=== PATIENT | female | born 1990 | race Two or more races ===

== ENCOUNTER 2022-05-31 14:21 | Emergency (ER) | payer OTHER ==
[~2022-05-31] VITALS: Ht 157.5 cm; Wt 71.3 kg
[2022-05-31 15:29] LABS: Basophils # (auto) 0.1 10 ^3/uL (0-0.2); Basophils % (auto) 0.9 % (0.0-2.0); Eosinophils # (auto) 0.1 10 ^3/uL (0-0.8); Eosinophils % (auto) 2.2 % (0.0-7.0); Hematocrit 39.4 % (36.0-46.0); Hemoglobin 12.8 g/dL (12.2-16.2); Lymphocytes % (auto) 30.6 % (10.0-50.0); Mean Corpuscular Hemoglobin 29.2 pg (28.0-32.0); Mean Corpuscular Hgb Conc. 32.6 g/dL (32.0-36.0); Mean Corpuscular Volume 89.8 fL (80.0-100.0); Monocytes # (auto) 0.4 10 ^3/uL (0-1.3); Neutrophils # (auto) 3.8 10 ^3/uL (1.6-8.6); Neutrophils % (auto) 59.3 % (37.0-80.0); Red Blood Cells 4.39 10^6/uL (4.0-5.20); Red Cell Distribution Width 14.6 % (11.8-14.3); White Blood Cell 6.4 10^3/uL (4.4-10.8)
[2022-05-31 15:47] LABS: Albumin 4.3 g/dL (3.4-5.0); BUN/Creatinine Ratio 18.2; Calcium 8.7 mg/dL (8.5-10.1)
[2022-05-31 15:49] LABS: Bilirubin, Total 0.3 mg/dL (0.2-1.0); Total Protein 7.8 g/dL (6.4-8.2)
[2022-05-31] MEDS ORDERED: IOHEXOL 350 MG/ML 100ML IJ ONE (16:26)
[2022-05-31 16:33] LABS: Urine Bacteria FEW /hpf (None Seen); Urine Blood Negative /uL (Negative); Urine Specific Gravity 1.014 (1.001-1.035); Urine WBC 1 /hpf (0 - 5)
[2022-05-31 20:58] VITALS: BP 124/74
== END 2022-05-31 21:02 ==
LOC: EEVIPCON 14:21 → ER 14:21
DX: R19.09 Other intra-abdominal and pelvic swelling, mass and lump (principal); K59.00 Constipation, unspecified; Z90.49 Acquired absence of other specified parts of digestive tract; Z32.02 Encounter for pregnancy test, result negative
CPT/HCPCS: 36415; 74177; 80053; 81001; 81025; 84702; 85025; 99285; Q9967

== ENCOUNTER → 2023-12-09 | Outpatient (CLI) | payer OTHER ==
[~2023-12-09] MED LIST: IOHEXOL 300 MG/ML 100ML BOTTLE IJ ONE
[2023-12-09 08:52] LABS: Chloride 109 mmol/L (98-107); Potassium 3.9 mmol/L (3.5-5.1); Sodium 142 mmol/L (136-145)
[2023-12-09 08:53] LABS: Anion Gap 8 (5-15); Carbon Dioxide 25 mmol/L (20-30)
[2023-12-09 08:54] LABS: Calcium 9.3 mg/dL (8.5-10.1)
[2023-12-09 08:58] LABS: BUN/Creatinine Ratio 14.5 (10.0-20.0); Blood Urea Nitrogen 10 mg/dL (9-23); Glucose 86 mg/dL (74-106)
== END | disposition home or self-care (01) ==
LOC: EEVIPCON 08:00 → CT 08:12
DX: R19.00 Intra-abdominal and pelvic swelling, mass and lump, unspecified site (principal); Z90.49 Acquired absence of other specified parts of digestive tract
CPT/HCPCS: 36415; 74177; 80048; Q9967

== ENCOUNTER → 2024-01-03 | Day surgery (SDC) | payer OTHER ==
[~2024-01-03] VITALS: Ht 157.5 cm; Wt 70.3 kg
[~2024-01-03] MED LIST changes: +DexAMETHasone SOD PHOS 10MG/1ML VIAL INJ ONE; +HYDROmorphone HCL 2 MG/ML VL/or syr IV PRN; +HYDROmorphone HCL 2 MG/ML VL/or syr ONE; -IOHEXOL 300 MG/ML 100ML BOTTLE IJ ONE; +MEPERIDINE HCL (25 MG/ML) 1ML VIAL IV PRN; +ONDANSETRON HCL 4 MG/2 ML VIAL IV PRN; +ONDANSETRON HCL 4 MG/2 ML VIAL ONE; +PROPOFOL 10 MG/ML 20 ML IV ONE; +ceFAZolin 2 GM/D5W50ml 50 ML IV ONE; +fentaNYL CITRATE 100 MCG/2 ML VL ONE
[2024-01-03] MEDS: HEPARIN SODIUM (PORCINE) 5000 UNITS/ML 1ML VIAL ONE (07:10)
[2024-01-03] MEDS: BUPIVACAINE 0.5% P/F INJ 10 ML VIAL ONE ×2 (08:00)
[2024-01-03] MEDS: LIDOCAINE 1% HCL (LOCAL ANESTH.) INJ 20ML MDV ONE (08:00)
[2024-01-03 08:08] VITALS: TEMP 97.8; O2SAT 98
[2024-01-03 09:18] VITALS: BP 129/75; PULSE 71; RESP 13; O2SAT 94
== END | disposition home or self-care (01) ==
LOC: SUR 05:30 → EEVIPCON 07:00
DX: M79.89 Other specified soft tissue disorders (principal); N80.C9 Endometriosis of other site of abdomen; Z79.899 Other long term (current) drug therapy; Z98.890 Other specified postprocedural states
CPT/HCPCS: 22901; 81025; 88305; 88342; J0690; J1100; J1170; J1644; J2001; J2405; J2704; J3010; J3490